=== PATIENT | male | born 1990 | race Caucasian/White ===

== ENCOUNTER 2023-05-11 23:24 | Emergency (ER) | payer SELFPAY ==
[~2023-05-11] VITALS: Ht 182.9 cm; Wt 99.8 kg
[2023-05-11 23:49] VITALS: BP 136/88; PULSE 71; RESP 16; TEMP 97.4; O2SAT 98
[2023-05-12] MEDS ORDERED: KETOROLAC 30 MG/ML VIAL IM ONE (03:50)
[2023-05-12] MEDS ORDERED: ACETAMINOPHEN EXTRA STRENGTH 500 MG TAB PO ONE (03:50)
[2023-05-12 05:03] VITALS: BP 129/71; PULSE 63; RESP 14; O2SAT 98
== END 2023-05-12 05:03 | disposition home or self-care (01) ==
LOC: MED 23:24
DX: M79.644 Pain in right finger(s) (principal); Z79.899 Other long term (current) drug therapy
CPT/HCPCS: 29125; 73130; 96372; 99283; J1885